=== PATIENT | female | born 1995 | race Caucasian/White ===

== ENCOUNTER → 2017-12-06 | Outpatient (CLI) | payer OTHER ==
[~2017-12-06] MED LIST: NORCO 325 MG-51 TAB PO
== END ==
LOC: COL.RAD 13:28
DX: M22.02 Recurrent dislocation of patella, left knee (principal); M25.462 Effusion, left knee

== ENCOUNTER 2018-11-14 19:44 | Emergency (ER) | payer OTHER ==
[~2018-11-14] VITALS: Ht 157.5 cm; Wt 65.5 kg
[2018-11-14 19:53] VITALS: BP 122/80; PULSE 95; TEMP 98.7
[2018-11-14] MEDS ORDERED: ALDACTONE 25MG25 M1 PO (20:48)
[2018-11-14] MEDS ORDERED: NORCO 325 MG-51 TAB PO (21:30)
== END 2018-11-14 22:04 | disposition home or self-care (01) ==
LOC: COL.ER 19:44
DX: S32.2XXA Fracture of coccyx, initial encounter for closed fracture (principal); W19.XXXA Unspecified fall, initial encounter